=== PATIENT | male | born 1935 | race Caucasian/White ===

== ENCOUNTER 2016-03-26 17:02 | Emergency (ER) | payer MEDICARE ==
[2015-09-23 09:10] VITALS: BMI 32.4
[~2016-03-26 17:02] MED LIST: ALLEGRA-D1 TAB.SR1 PO; BAYER CHEWABLE81 MG PO; FEXOFENADINE H180 MG PO; FLOMAX0.4 MG PO; FOLIC ACID1 MG PO; GLUCOPHAGE500 MG PO; JANUMET 50-1,001 TAB PO; LEVOXYL150 MCG PO; LEVOXYL175 MCG PO; MULTI-DAY VITAM1 TAB PO; PROAIR HFA8.5 GM INH; PROSCAR5 MG PO; SINGULAIR10 MG PO; SYMBICORT 16010.2 GM INH; UNITHROID150 MCG PO; VITAMIN B-122500 MCG SL; VYTORIN 10-20 M1 TAB PO
[2016-03-26 18:25] LABS: BASOPHILS 0.1 % (0.0-2.0); EOSINOPHILS 0.3 % (0-7); HEMOGLOBIN 13.4 g/dL (13.5-17.5); IMMATURE GRANULOCYTES 0.4 % (0-5); LYMPHOCYTES 12.9 % (15-50); MCH 31.6 pg (26.0-34.0); MCHC 32.7 g/dL (31.0-37.0); MCV 96.7 fL (80.0-100.0); MEAN PLATELET VOLUME 9.6 fL (7.4-10.4); MONOCYTES 13.1 % (2-11); NEUTROPHILS 73.2 % (40-80); RBC 4.24 10x6/uL (4.20-6.10)
[2016-03-26 18:26] LABS: PLATELET COUNT 273 10x3/uL (130-400)
[2016-03-26 18:39] LABS: ANION GAP 14.7 mmol/L (8-16); CALCIUM 9.6 mg/dL (8.5-10.1); CARBON DIOXIDE 24.6 mmol/L (21.0-32.0); CREATININE - SERUM 1.1 mg/dL (0.6-1.3); POTASSIUM - SERUM 4.3 mmol/L (3.5-5.1)
== END 2016-03-26 19:08 | disposition home or self-care (01) ==
LOC: D.ER 17:02
PROVIDERS: Nurse Practitioner Acute Care
DX: J45.901 Unspecified asthma with (acute) exacerbation (principal)

== ENCOUNTER 2016-05-22 13:19 | Emergency (ER) | payer MEDICARE ==
[2015-09-23 09:10] VITALS: BMI 32.4
[2016-05-22 14:37] LABS: BASOPHILS 0.7 % (0.0-2.0); EOSINOPHILS 16.5 % (0-7); HEMATOCRIT 39.3 % (42.0-54.0); HEMOGLOBIN 13.1 g/dL (13.5-17.5); IMMATURE GRANULOCYTES 0.4 % (0-5); LYMPHOCYTES 19.1 % (15-50); MCH 31.5 pg (26.0-34.0); MCHC 33.3 g/dL (31.0-37.0); MCV 94.5 fL (80.0-100.0); MONOCYTES 11.4 % (2-11); NEUTROPHILS 51.9 % (40-80); PLATELET COUNT 210 10x3/uL (130-400); RBC 4.16 10x6/uL (4.20-6.10); RDW 14.3 % (11.5-14.5)
[2016-05-22 14:52] LABS: ALBUMIN 3.4 g/dL (3.4-5.0); ALKALINE PHOSPHATASE 54 U/L (46-116); ALT (SGPT) 26 U/L (10-68); BILIRUBIN - TOTAL 0.42 mg/dL (0.2-1.3); CALC OSMOLALITY 278 mosm/kg (275-300); CALCIUM 8.9 mg/dL (8.5-10.1); CARBON DIOXIDE 26.9 mmol/L (21.0-32.0); CHLORIDE - SERUM 103 mmol/L (98-107); POTASSIUM - SERUM 4.3 mmol/L (3.5-5.1); SODIUM 138 mmol/L (136-145); UREA NITROGEN 12 mg/dL (7-18); eGFR NON AFRICAN AMERICAN 77 mL/min (90-120)
[2016-05-22 14:53] LABS: GLUCOSE 156 mg/dL (74-106)
[2016-05-22 15:01] LABS: CREATINE KINASE 65 UL (21-232); PRO BNP 68 pg/mL (0-450); TROPONIN-I < 0.017 ng/mL (0.000-0.060)
== END 2016-05-22 17:43 | disposition home or self-care (01) ==
LOC: D.ER 13:19
PROVIDERS: Emergency Medicine
DX: R06.00 Dyspnea, unspecified (principal); J44.1 Chronic obstructive pulmonary disease with (acute) exacerbation; J45.909 Unspecified asthma, uncomplicated

== ENCOUNTER → 2016-08-31 08:32 | Outpatient (CLI) | payer MEDICARE ==
[2015-09-23 09:10] VITALS: BMI 32.4
--- NOTE | 2016-08-31 09:55 | NUR ---
Nutrition education for DMT2: S: Pt reports eating large amounts of CHO foods at meals. Pt will eat @ least 2 cups of pasta and then go back for seconds. Pt likes sweets and will eat them from time to time. Pt drinks mostly water and artificially sweetened tea. Pt plays golf and walks most days. O: 81 year old male Ht: 5'7" Wt: 196# IBW: 148# +/-10% BMI: 30.7 Meds: Janumet, SS insulin, Lantus, prednisone Labs: A1c: 8.6 A: Reviewed CHO containing foods and the affect CHO have on glucose. Reviewed portion sizes of common CHO foods. Discussed the importance of meal timing along with consistent intake of CHO from meal to meal and snack to snack. Reviewed sample menus. Advised pt to decrease the amount of CHO eaten at each meal to no more than 45 gm CHO per meal. Discussed all components of meal planning; pt to increase nonstarchy vegetables and good fat intake to offset lost CHO. Pt with good understanding of information provided. Questions answered. P: Provided pt with printed diet information and RDN name and phone number. RDN will be available if needed. Thank you for the consult.
== END | disposition home or self-care (01) ==
LOC: D.FANS 08:32
DX: E11.9 Type 2 diabetes mellitus without complications (principal)

== ENCOUNTER → 2016-09-27 10:41 | Outpatient (CLI) | payer MEDICARE ==
[2015-09-23 09:10] VITALS: BMI 32.4
== END | disposition home or self-care (01) ==
LOC: D.CT 10:41
DX: C96.6 Unifocal Langerhans-cell histiocytosis (principal); R91.8 Other nonspecific abnormal finding of lung field